=== PATIENT | male | born 1990 | race Caucasian/White ===

== ENCOUNTER 2021-10-11 11:25 | Emergency (ER) | payer MEDICAID ==
[~2021-10-11] VITALS: Ht 152.4 cm; Wt 54.4 kg
[2021-10-11 11:44] VITALS: BP 115/70
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
[2021-10-11] MEDS ORDERED: BACITRACIN OINT 500 UNITS/GM PKT TP ONE ×2 (12:10→13:53)
[2021-10-11] MEDS ORDERED: LIDOCAINE MPF 1% 10 MG/ML VIAL INJ ONE (12:10)
[2021-10-11] MEDS ORDERED: ACETAMINOPHEN 325 MG TAB PO ONE (12:10)
[2021-10-11] MEDS ORDERED: ONDA-188 SL (13:41)
[2021-10-11] MEDS ORDERED: IBUP-2213 PO (13:41)
[2021-10-11 13:45] VITALS: BP 121/66
--- NOTE | 2021-10-11 13:51 | NUR ---
Patient discharged with v/s stable. Written and verbal after care instructions given and explained. Patient alert, oriented and verbalized understanding of instructions. Ambulatory with steady gait. All questions addressed prior to discharge. ID band removed. Patient advised to follow up with PMD. Rx of MOTRIN, ZOFRAN given. Patient educated on indication of medication including possible reaction and side effects. Opportunity to ask questions provided and answered.
== END 2021-10-11 13:51 | disposition home or self-care (01) ==
LOC: MED 11:25
DX: S01.01XA Laceration without foreign body of scalp, initial encounter (principal); E11.9 Type 2 diabetes mellitus without complications; Y08.89XA Assault by other specified means, initial encounter; Y93.89 Activity, other specified; Y92.89 Other specified places as the place of occurrence of the external cause; Y99.8 Other external cause status
CPT/HCPCS: 12001; 70450; 99284; J2001

== ENCOUNTER 2021-10-15 22:45 | Emergency (ER) | payer MEDICAID ==
[~2021-10-15] VITALS: Ht 157.5 cm; Wt 55.3 kg
[~2021-10-15 22:45] MED LIST: IBUP-2213 PO; ONDA-188 SL
[2021-10-15 23:09] VITALS: BP 105/59
--- NOTE | 2021-10-15 23:58 | NUR ---
PT CALLED FROM INSIDE LOBBY AND OUTSIDE, NO RESPONSE.
--- NOTE | 2021-10-16 | NUR ---
PTs PERSONAL PHONE CALLED, NO ANSWER
--- NOTE | 2021-10-16 00:07 | NUR ---
PT CALLED IN LOBBY AND OUTSIDE WITH NO ANSWER. PATIENT LEFT WITHOUT BEING SEEN BY DR. ORTIZ. NO FURTHER CARE PROVIDED FOR PATIENT.
== END 2021-10-16 00:07 | disposition left against medical advice (07) ==
LOC: MED 22:45
DX: T14.8XXD Other injury of unspecified body region, subsequent encounter (principal); Z53.21 Procedure and treatment not carried out due to patient leaving prior to being seen by health care provider; X58.XXXD Exposure to other specified factors, subsequent encounter

== ENCOUNTER 2021-10-21 10:37 | Emergency (ER) | payer MEDICAID ==
[~2021-10-21] VITALS: Ht 154.9 cm; Wt 54.0 kg
[2021-10-21 10:43] VITALS: BP 118/70
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
[2021-10-21 11:05] VITALS: BP 118/70
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
== END 2021-10-21 11:05 | disposition home or self-care (01) ==
LOC: MED 10:37
DX: S01.01XD Laceration without foreign body of scalp, subsequent encounter (principal); E11.9 Type 2 diabetes mellitus without complications; Z79.899 Other long term (current) drug therapy; X58.XXXD Exposure to other specified factors, subsequent encounter
CPT/HCPCS: 99281